=== PATIENT | male | born 1980 | race Caucasian/White ===

== ENCOUNTER 2021-05-11 17:06 | Emergency (ER) | payer BC ==
[2021-05-11 17:51] VITALS: BP 143/90; PULSE 87; RESP 16; TEMP 97.9
[2021-05-11] MEDS ORDERED: HYDROcodone/APAP 5-325MG 1 EACH TAB PO STA (19:23)
[2021-05-11 20:25] LABS: Basophils # (A) 0.1 k/uL (0-0.2); Basophils % (A) 1 %; Eosinophils # (A) 0.4 k/uL (0-0.7); Eosinophils % (A) 4 %; HCT 45.6 % (39.0-53.0); HGB 15.9 gm/dL (13.0-17.5); Lymphocytes # (A) 2.6 k/uL (1.0-4.8); Lymphocytes % (A) 27 %; MCH 31.2 pg (25.0-35.0); MCHC 34.8 g/dL (31.0-37.0); MCV 89.7 fL (80.0-100.0); Mean Platelet Volume 8.1; Monocytes # (A) 0.5 k/uL (0-1.0); Monocytes % (A) 5 %; Neutrophils # (A) 5.8 k/uL (1.3-7.7); Neutrophils % (A) 61 %; Platelet Count 248 k/uL (150-450); RBC 5.08 m/uL (4.30-5.90); WBC 9.5 k/uL (3.8-10.6)
[2021-05-11 20:32] LABS: Partial Thromboplastin Time 25.2 sec (22.0-30.0); Prothrombin Time 10.7 sec (9.0-12.0)
[2021-05-11 20:48] LABS: ALT 14 U/L (4-49); AST 23 U/L (17-59); African American GFR (CKD) >90 (>60 ml/min/1.73 sqM); Albumin 4.9 g/dL (3.5-5.0); Alkaline Phosphatase 64 U/L (38-126); Anion Gap 11 mmol/L; Blood Urea Nitrogen 12 mg/dL (9-20); Calcium 9.6 mg/dL (8.4-10.2); Carbon Dioxide 26 mmol/L (22-30); Chloride 104 mmol/L (98-107); Glucose 93 mg/dL (74-99); Magnesium 2.3 mg/dL (1.6-2.3); Non-African American GFR(CKD) >90 (>60 ml/min/1.73 sqM); Potassium 4.1 mmol/L (3.5-5.1); Sodium 141 mmol/L (137-145); Total Bilirubin 0.7 mg/dL (0.2-1.3); Total Protein 7.4 g/dL (6.3-8.2)
--- NOTE | 2021-05-11 20:53 | US ---
EXAMINATION TYPE: US venous doppler duplex LE RT DATE OF EXAM: 05/11/2021 7:36 PM COMPARISON: NONE CLINICAL HISTORY: swelling, concern for dvt. palpable within upper thigh and redness, no h/o dvt SIDE PERFORMED: Right TECHNIQUE: The lower extremity deep venous system is examined utilizing real time linear array sonog bob with graded compression, doppler sonography and color-flow sonography. VESSELS IMAGED: Common Femoral Vein Deep Femoral Vein Greater Saphenous Vein * Femoral Vein Popliteal Vein Small Saphenous Vein * Proximal Calf Veins (* superficial vessels) Right Leg: Negative for DVTextensive GSV thrombus extending from mid calf up through mid thigh, le ngth is over 5cm, but upper thigh GSV was patent so the clot is over 5cm from the CFV junction IMPRESSION: No evidence of deep vein thrombosis. There is thrombus in the long saphenous vein which i s a superficial vein.
--- NOTE | 2021-05-11 21:23 | ED ---
General Adult HPI - General Chief complaint: Extremity Problem,Nontraumatic Stated complaint: rt leg swelling, bruising Time Seen by Provider: 05/11/21 17:30 Source: patient, RN notes reviewed, old records reviewed Mode of arrival: ambulatory Limitations: no limitations - History of Present Illness Initial comments: Patient is a 40-year-old male withpast medical history except for prior varicose vein surgery presents emergency Department complaining of multiple day history of worsening swelling in his right lower extremity. He states that he has no swelling in his right lower extremity with some increased pressure superficially. Denies any numbness. States it is uncomfortable. He is able to ambulate without difficulty. He denies any history of blood clots in himself, but does state that family hours have had blood clots previously. Denies any other acute complaint at this time, including dramatic and the patient's right leg. He denies any fevers, chills, sick contacts. Denies any chest pain, shortness breath. Denies any abdominal pain, nausea, vomiting. Patient presents for evaluation of this right leg and is concerned about a possible blood clot. - Related Data Home Medications Medication Instructions Recorded Confirmed No Known Home Medications 05/11/21 05/11/21 Allergies Allergy/AdvReac Type Severity Reaction Status Date / Time Penicillins AdvReac Rash/Hives Verified 05/11/21 20:15 Review of Systems ROS Statement: Those systems with pertinent positive or pertinent negative responses have been documented in the HPI. Review of Systems: CONST: Denies fever EYES: Denies blurry vision ENT: Denies nasal congestion C/V: Denies Chest pain RESP: Denies shortness of breath GI: Denies abdominal pain : Denies dysuria SKIN: Denies rash. MSK: Endorses right leg pain, swelling NEURO: Denies headache ROS Other: All systems not noted in ROS Statement are negative. Past Medical History Past Medical History: No Reported History History of Any Multi-Drug Resistant Organisms: None Reported Past Surgical History: Tonsillectomy Additional Past Surgical History / Comment(s): varicose vein surgery Past Psychological History: No Psychological Hx Reported Smoking Status: Never smoker Past Alcohol Use History: None Reported Past Drug Use History: None Reported General Exam - General Exam Comments Initial Comments: General: Patient is in mild distress secondary to right leg discomfort. HEAD: Normal with no signs of head trauma. EYES: EOMI ENT: Hearing grossly intact, normal oropharynx. RESPIRATORY: Clear breath sounds bilaterally. No wheezes, rales, or rhonchi. C/V: Regular rate and rhythm. S1 and S2 auscultated, no pitting edema, peripheral pulses 2+ and intact throughout. Patient does have a palpable what appears to be vein over the lateral aspect of the right leg. Patient is tender to palpation in the right calf. ABD: Abd is soft, nontender, nondistended EXT: Normal range of motion, no obvious deformity. Patient is tender to palpation in the right calf. SKIN: No rashes or lesions observed on exposed skin. No erythema the right leg NEURO: Alert and oriented 4. No focal sensory or strength deficits. Limitations: no limitations Course Vital Signs 05/11/21 17:49 Temperature 97.9 F Pulse Rate 87 Respiratory 16 Rate Blood Pressure 143/90 O2 Sat by Pulse 98 Oximetry Medical Decision Making - Medical Decision Making Based on the patient's presentation and physical exam, I'm concerned for possible DVT with a regular x-ray. Basic labs as well as coags will be obtained. Patient will be given a Harold for pain management. We will obtain a venous duplex of the right lower extremity. He was in agreement with this plan. Patient's laboratory studies are unremarkable. Venous duplex revealed a saphenous vein thrombus on the right, greater than 5 cm from the deep venous system. Per policy, patient does not require anticoagulation at this time but does require repeat ultrasound in 1 week. I did discuss with the patient the results of his imaging as well as laboratory studies. I informed him that he can return to the emergency department for repeat ultrasound imaging of the right lower extremity, but also informed him to return if he has any worsening symptoms or chest pain or shortness of breath. He was in agreement with this plan. I counseled him on pain management. I believe it is safe for the patient be discharged home. Patient states he has ibuprofen at home for pain management. I provided him with a prescription for repeat ultrasound in 1 week of the right lower extremity as a venous duplex. I instructed the patient to follow up with their PCP in the next 3 days. I explained that the patient should return to the emergency department if they experience any worsening symptoms. Strict return precautions were discussed with the patient. The patient expressed understanding of these instructions. I answered all questions that the patient had. The patient was discharged home in fair condition with their prescriptions and follow up information. - Lab Data Result diagrams: 05/11/21 19:45 05/11/21 19:45 Lab Results 05/11/21 05/11/21 05/11/21 Range/Units 19:45 19:45 19:45 WBC 9.5 (3.8-10.6) k/uL RBC 5.08 (4.30-5.90) m/uL Hgb 15.9 (13.0-17.5) gm/dL Hct 45.6 (39.0-53.0) % MCV 89.7 (80.0-100.0) fL MCH 31.2 (25.0-35.0) pg MCHC 34.8 (31.0-37.0) g/dL RDW 12.0 (11.5-15.5) % Plt Count 248 (150-450) k/uL MPV 8.1 Neutrophils % 61 % Lymphocytes % 27 % Monocytes % 5 % Eosinophils % 4 % Basophils % 1 % Neutrophils # 5.8 (1.3-7.7) k/uL Lymphocytes # 2.6 (1.0-4.8) k/uL Monocytes # 0.5 (0-1.0) k/uL Eosinophils # 0.4 (0-0.7) k/uL Basophils # 0.1 (0-0.2) k/uL PT 10.7 (9.0-12.0) sec INR 1.0 (<1.2) APTT 25.2 (22.0-30.0) sec Sodium 141 (137-145) mmol/L Potassium 4.1 (3.5-5.1) mmol/L Chloride 104 (98-107) mmol/L Carbon Dioxide 26 (22-30) mmol/L Anion Gap 11 mmol/L BUN 12 (9-20) mg/dL Creatinine 0.73 (0.66-1.25) mg/dL Est GFR (CKD-EPI)AfAm >90 (>60 ml/min/1.73 sqM) Est GFR (CKD-EPI)NonAf >90 (>60 ml/min/1.73 sqM) Glucose 93 (74-99) mg/dL Calcium 9.6 (8.4-10.2) mg/dL Magnesium 2.3 (1.6-2.3) mg/dL Total Bilirubin 0.7 (0.2-1.3) mg/dL AST 23 (17-59) U/L ALT 14 (4-49) U/L Alkaline Phosphatase 64 (38-126) U/L Total Protein 7.4 (6.3-8.2) g/dL Albumin 4.9 (3.5-5.0) g/dL Disposition Clinical Impression: Thrombosis of right saphenous vein Disposition: HOME SELF-CARE Condition: Fair Instructions (If sedation given, give patient instructions): Superficial Thrombophlebitis (ED) Is patient prescribed a controlled substance at d/c from ED?: No Referrals: Bam Rich MD [Primary Care Provider] - 1-2 days
== END 2021-05-11 21:40 | disposition home or self-care (01) ==
LOC: EC 17:06
DX: I82.811 Embolism and thrombosis of superficial veins of right lower extremity (principal); Z88.0 Allergy status to penicillin
CPT/HCPCS: 36415; 80053; 83735; 85025; 85610; 85730; 99284